=== PATIENT | male | born 1965 | race Caucasian/White ===

== ENCOUNTER 2020-05-21 09:41 | Inpatient (IN) | payer BC ==
[~2020-05-21] VITALS: Ht 188 cm; Wt 88.0 kg
--- NOTE | 2020-05-21 10:12 | Emergency Department Note ---
History of Present Illnes History of Present Illness History of Present Illness This is a 55 year old male hx of Crohn dz on Remicade sent over by Dr Anselmo Styles for 4 wks of f/c coughing, SOB. He has been tested negative for Covid 2 times, been taking Augmentin 1 course then Z pack once but he is not getting better. Arrival Mode: Car Card Brusher Required: No Onset (how long ago): week(s) Radiation: Reports back Severity: moderate Onset quality: gradual Duration (how long): week(s) Timing of current episode: intermittent Progression: worsening Chronicity: new Relieving factors: rest Exacerbating factors: movement Associated symptoms: Reports chest pain, Reports cough, Reports diaphoresis, Reports fever/chills, Reports loss of appetite, Reports malaise, Reports shortness of breath, Reports weakness Treatments prior to arrival: none Previous service: medications given, one or more referrals Past Medical/Family History Physician Review I have reviewed the patient's past medical and family history. Any updates have been documented here. Past Medical History Recent Fever: Yes Clinical Suspicion of Infectio: Yes New/Unexplained Change in Ment: No Other Medical History: Crohn Past Surgical History: None Social History Smoking Cessation: Never Smoker Counseling Performed: No Alcohol Use: Social Any Illegal Drug Use: No Family History Family history of heart diseas: No Other Any Pre-Existing Lines (PICC,: No Review of Systems Review of Systems Constitutional: Reports no symptoms EENTM: Reports no symptoms Cardiovascular: Reports chest pain Respiratory: Reports as per HPI, Reports chest congestion, Reports cough, Reports pain with cough, Reports dyspnea, Reports dyspnea on exertion Gastrointestinal: Reports no symptoms Genitourinary: Reports no symptoms Musculoskeletal: Reports no symptoms Integumentary: Reports no symptoms Neurological: Reports no symptoms Psychological: Reports no symptoms Endocrine: Reports no symptoms Hematological/Lymphatic: Reports no symptoms Physical Exam Related Data Allergies: Coded Allergies: No Known Allergies (Unverified , 05/21/20) Vital signs reviewed: Yes (HR 107, sat 99 % RA) Physical Exam CONSTITUTIONAL Constitutional: Present well-developed, Present well-nourished HENT HENT: Present normocephalic, Present atraumatic, Present oropharynx clear/moist, Present nose normal HENT L/R: Present left ext ear normal, Present right ext ear normal EYES Eyes: Reports PERRL, Reports conjunctivae normal NECK Neck: Present ROM normal PULMONARY Pulmonary: Present rales CARDIOVASCULAR Cardiovascular: Present tachycardia GASTROINTESTINAL Abdominal: Present soft, Present nontender, Present bowel sounds normal GENITOURINARY Genitourinary: Present exam deferred SKIN Skin: Present warm, Present dry MUSCULOSKELETAL Musculoskeletal: Present ROM normal NEUROLOGICAL Neurological: Present alert, Present oriented x 3, Present no gross motor or sensory deficits PSYCHOLOGICAL Psychological: Present mood/affect normal, Present judgement normal Results Laboratory Lab results reviewed: Yes Laboratory comments platelets are low Imaging Imaging results reviewed: Yes Imaging Comments CT scan no PE, pna right lower Procedures 12 Lead ECG Interpretation ECG Interpretation : ECG: ECG 1 Date: May 21, 2020 Time: 09:52 Prior ECG tracings: reviewed Rhythm: sinus tachycardia Rate: tachycardia QRS axis: normal Conduction: incomplete RBBB ST segments normal: Yes T waves normal: Yes Clinical Impression: abnormal ECG Assessment & Plan Medical Decision Making MDM PNA, COV, effusion, CHF Reassessment Reassessment time: 12:30 Reassessment doing better Assessment & Plan Final Impression: (1) Right lower lobe pneumonia (2) Thrombocytopenia (3) Tachycardia (4) Bronchospasm with bronchitis, acute Depart Disposition: ADMITTED Home Meds Reported Medications Celecoxib* (CELEBREX*) 100 Mg Capsule, 100 MG PO DAILY, #30 CAP 05/21/20 Losartan Potassium (LOSARTAN POTASSIUM) 100 Mg Tablet, 100 MG PO DAILY, TAB 05/21/20 Infliximab (REMICADE) 100 Mg/Vial Vial, every 8 weeks 05/21/20 Allopurinol (ALLOPURINOL) 100 Mg Tablet, 100 MG PO DAILY, #30 TAB 05/21/20 Discontinued Reported Medications Citalopram Hydrobromide (CELEXA) 20 Mg Tablet 05/21/20 Medications in the ED Rocephin IV, Dexamethasone IV Physician Attestation Provider Attestation case discussed with Dr Ernandez, MATHEW Ogden MD May 21, 2020 10:12
--- NOTE | 2020-05-21 10:35 | Diagnostic Imaging Report ---
EXAMINATION: CXR 2 VIEW - HOPD INDICATION: Chest pain, cough, fever COMPARISON: None FINDINGS: LINES/TUBES:EKG leads overlie the chest. LUNGS:The lungs are well-inflated. No focal consolidation or pulmonary edema. PLEURA:No pleural effusion or pneumothorax. MEDIASTINUM:The cardiomediastinal silhouette appears normal in size and shape. BONES/SOFT TISSUES:No acute osseous injury. ABDOMEN:No free air under the diaphragm. IMPRESSION: No focal pneumonia or pulmonary edema. Signed by: Marily Rubalcava MD on 05/21/2020 10:31 AM
[2020-05-21] MEDS ORDERED: CEFTRIAXONE SOD 1 GM VIAL IV ONE (10:45)
[2020-05-21] MEDS ORDERED: DEXAMETHASONE SOD PHOS 10 MG/1 ML VIAL IV ONE (10:45)
[2020-05-21] MEDS ORDERED: DEXAMETHASONE SOD PHOS INJ 4 MG/ML VIAL ONE (11:02)
[2020-05-21] MEDS ORDERED: CEFTRIAXONE SOD 1 GM/NS 50 ML 50 ML IV ONE (11:03)
[2020-05-21] MEDS ORDERED: ACETAMINOPHEN 325 MG TAB ONE (11:03)
[2020-05-21] MEDS ORDERED: SODIUM CHLORIDE 0.9% 1000ML 1,000 ML IV STA (11:04)
--- OUTSIDE RECORDS SUMMARY | 2020-05-21 11:08 | XMS REPORT | Continuity of Care Document ---
Author Author [facility] Organization [facility] Address [address] [place] [address] [place] [id number] Phone Unavailable Care Team Providers [employer] Name Role Phone Cassy ROJAS Attphys Unavailable Problems This patient has no known problems. Allergies, Adverse Reactions, Alerts This patient has no known allergies or adverse reactions. Medications This patient has no known medications. Procedures This patient has no known procedures. Results Test Description Test Time Test Comments Results Result Comments Source CXR 2 VIEW - HOPD 2020-05-21 10:31:00 [facility] : 1965 Sex: M [facility] [address] [place] [address] Patient Name: KIMMY HAYNES MR #: [id number] : 1965 Age/Sex: 55/M Req #: [id number] [facility] Physician: Ordered by: MATHEW ROJAS MD Report #: [id number] Location: [facility] Room/Bed: Procedure: [id number] HOPD/CXR 2 VIEW - HOPD Exam Date: 05/21/20 Exam Time: 1023 REPORT STATUS: Signed EXAMINATION: CXR 2 VIEW - HOPD INDICATION: Chest pain, cough, fever COMPARISON: None FINDINGS: LINES/TUBES:EKG leads overlie the chest. LUNGS:The lungs are well- inflated. No focal consolidation or pulmonary edema. PLEURA:No pleural effusion or pneumothorax. MEDIASTINUM:The cardiomediastinal silhouette appears normal in size and shape. BONES/SOFT TISSUES:No acute osseous injury. ABDOMEN:No free air under the diaphragm. IMPRESSION: No focal pneumonia or pulmonary edema. Signed by: Wilfredo Villanueva MD on 05/21/2020 10:31 AM Dictated By: WILFREDO VILLANUEVA MD 1031 Transcribed By: RITESH on 05/21/20 1031 COPY TO: MATEHW ROJAS MD
[2020-05-21] MEDS ORDERED: CEFTRIAXONE SOD 1 GRAM/0.9% SOD CHL 50ML BAG IV SCH (11:15)
[2020-05-21] MEDS: ALBUTEROL SULF 0.083% NEB SOLN 3 ML NEB NEB SCH ×2 (11:25→20:45)
[2020-05-21] MEDS: IPRATROPIUM BROMIDE 0.02% 2.5 ML NEB NEB SCH ×2 (11:25→20:45)
--- OUTSIDE RECORDS SUMMARY | 2020-05-21 11:25 | XMS REPORT | Continuity of Care Document ---
Author Author [facility] Organization [facility] Address [address] [place] [address] [place] [id number] Phone Unavailable Care Team Providers Care [employer] Name Role Phone Cassy ROJAS Attphys Unavailable Problems This patient has no known problems. Allergies, Adverse Reactions, Alerts This patient has no known allergies or adverse reactions. Medications This patient has no known medications. Procedures This patient has no known procedures. Results Test Description Test Time Test Comments Results Result Comments Source CXR 2 VIEW - HOPD 2020-05-21 10:31:00 [facility] : 1965 Sex: M [facility] [address] [place] [address] Patient Name: KIMMY HAYNES MR #: [id number] : 1965 Age/Sex: 55/M Req #: [id number] [facility] Physician: Ordered by: MATHEW ROJAS MD Report #: [id number] Location: [facility] Room/Bed: Procedure: [id number] HOPD/CXR 2 VIEW - HOPD Exam Date: [...] By: RITESH on 05/21/20 1031 COPY TO: MATHEW ROJAS MD
[2020-05-21] MEDS ORDERED: ACETAMINOPHEN 325 MG TAB PO NR (11:30)
[2020-05-21] MEDS ORDERED: ALBUTEROL SULF 0.083% NEB SOLN 3 ML NEB ONE (11:30)
[2020-05-21] MEDS ORDERED: SODIUM CHLORIDE 0.9% 1000ML 1,000 ML ONE (11:30)
[2020-05-21] MEDS ORDERED: IPRATROPIUM BROMIDE 0.02% 2.5 ML NEB ONE (11:30)
[2020-05-21] MEDS ORDERED: IOPAMIDOL 370 MG/ML 200 ML INFUS..BTL INJ ONE (11:32)
[2020-05-21] MEDS ORDERED: SODIUM CHLORIDE 0.9% 50ML 50 ML ONE (11:32)
--- NOTE | 2020-05-21 12:19 | Diagnostic Imaging Report ---
EXAM: CT Chest WITH contrast- Pulmonary Embolism Protocol INDICATION: Chest pain COMPARISON: None TECHNIQUE: Chest was scanned utilizing a multidetector helical scanner from the lung apex through the level of the diaphragm after administration of IV contrast. Thin section reconstructions were obtained with special concentration on the pulmonary arteries. Coronal and sagittal reformations were obtained. Pulmonary embolism protocol was performed. IV CONTRAST: 100 cc of Isovue 370 RADIATION DOSE: Total DLP: 521 mGy*cm Dose modulation, iterative reconstruction, and/or weight based adjustment of the mA/kV was utilized to reduce the radiation dose to as low as reasonably achievable. COMPLICATIONS: None FINDINGS: LINES/ TUBES: None. PULMONARY ARTERIES: No filling defect is identified within the pulmonary arteries to the segmental level. The subsegmental pulmonary arteries are not well opacified. Main pulmonary artery measures 2.9 cm in diameter. No right heart strain. LUNGS AND AIRWAYS: The central airways are patent. Patchy consolidation at the dependent right lower lobe. PLEURA: The pleural spaces are clear. HEART AND MEDIASTINUM: The thyroid gland is normal. No mediastinal, hilar or axillary lymphadenopathy. The heart is normal in size.. There is no pericardial effusion. No aortic aneurysm or dissection.. UPPER ABDOMEN: Splenomegaly to 16 cm. No acute findings in the upper abdomen. BONES: No acute osseous injury. No suspicious lytic or blastic lesions. SOFT TISSUES: Unremarkable. IMPRESSION: No pulmonary embolism. Patchy consolidation at the dependent right lower lobe may represent subsegmental atelectasis however superimposed atypical pneumonia could also have this appearance and should be excluded clinically. Signed by: Marily Rubalcava MD on 05/21/2020 12:16 PM
--- NOTE | 2020-05-21 13:11 | NUR ---
Contacted [facility] to transport pt to room 212
--- NOTE | 2020-05-21 13:22 | NUR ---
ETA for [facility] 30-45 minutes
--- NOTE | 2020-05-21 13:44 | NUR ---
Report to ZEN Lewis
[2020-05-21] MEDS ORDERED: REMICADE100 MG/VIA (14:28)
[2020-05-21] MEDS ORDERED: CELEXA20 MG (14:28)
[2020-05-21] MEDS ORDERED: ALLOPURINOL100 MG PO (14:28)
[2020-05-21] MEDS ORDERED: LOSARTAN POTAS100 MG PO (14:28)
[2020-05-21] MEDS ORDERED: CELEBREX100 MG PO (14:52)
[2020-05-21 15:07] VITALS: BP 133/72
[2020-05-21 16:00] VITALS: BP 135/92
[2020-05-21 16:22] VITALS: BP 133/72
--- NOTE | 2020-05-21 17:44 | NUR ---
ct abd and pelvis to be completed 05/22/20. patient already received IV contrast today. patient aware to not eat lunch tomorrow for scan at 12.
[2020-05-21] MEDS: PIPER-TAZ 3.375 GM 50 ML IV SCH (17:52)
--- NOTE | 2020-05-21 17:55 | NUR ---
consults to dr. cee & dr. diamond called to office.
[2020-05-21 20:00] VITALS: BP 131/83
[2020-05-21] MEDS ORDERED: ACETAMINOPHEN 325 MG TAB PO PRN (20:30)
[2020-05-21] MEDS ORDERED: ONDANSETRON HCL INJ 2MG/ML 2ML 2 MG/ML VIAL IV PRN (20:30)
[2020-05-21] MEDS: DOXYCYCLINE 100MG/NS 100ML 100 ML IV SCH (21:00)
--- NOTE | 2020-05-21 22:53 | History and Physical ---
CHIEF COMPLAINT: Fever, chills. HISTORY OF PRESENT ILLNESS: Mr. Rider is a 55-year-old male, who has a history of Crohn disease. He works in [employer]. He was at . office and was sent to the emergency room because of fever and chills. He reports that the symptoms have been going on for one month and he has seen his primary care physician, . She gave him antibiotics. However, he feels congested upper airway and congested sinuses including drainage. He has been tested COVID twice and has been negative and COVID was tested here in the emergency room, which was negative as well. He took a course of Augmentin and Z-Jose J once but not getting better. REVIEW OF SYSTEMS: GENERAL: No fever or chills. HEAD: Denies any head trauma. ENT: Denies any earache. CVS: Denies any chest pain. RESPIRATORY: No shortness of breath. GI: Denies any nausea or vomiting. The rest of the review of systems are negative except as in HPI. PAST MEDICAL HISTORY: Crohn disease. FAMILY AND SOCIAL HISTORY: He does not smoke. Does not drink. PHYSICAL EXAMINATION: VITAL SIGNS: Temperature 98.4, pulse of 116, blood pressure 135/92, respiratory rate of 18, and T-max of 101. HEENT: Head atraumatic, normocephalic. NECK: Supple. CHEST: Clear to auscultation bilaterally. No wheezing. Few crackles on the bases. HEART: S1, S2 audible. ABDOMEN: Soft. EXTREMITIES: No pedal edema. NEUROLOGIC: Awake and alert. LABORATORY DATA: No new labs here. CT chest is showing pneumonia. I reviewed the images. ASSESSMENT/PLAN: Mr. Rider is a 55-year-old male with fever. COVID has been negative twice. The patient's CT is showing evidence of right lower lobe pneumonia. I will start the patient on IV antibiotics. The patient is already on IV Zosyn. I will add doxycycline and also we will do CT abdomen and pelvis. Consult ID. Consult GI because the patient has history of Crohn disease. Pneumonia can be the source of fever, however, we will rule out other sources. We will do a CT abdomen and pelvis. Elena MD LUIS A Ernandez/JOSE /[id number]
[2020-05-22] VITALS (9 sets, daily range): BP systolic 113–151; BP diastolic 71–92
--- NOTE | 2020-05-22 00:35 | NUR ---
pt resting comfortably in bed no signs of distress no complaints at this time
[2020-05-22] MEDS: ALBUTEROL/IPRATROPIUM 3 ML NEB NEB SCH ×4 (03:35→19:15)
[2020-05-22] MEDS ORDERED: SODIUM CHLORIDE 0.9% 1000ML 1,000 ML ONE (04:09)
[2020-05-22] MEDS: PIPER-TAZ 3.375 GM 50 ML IV SCH ×5 (06:00→21:57)
[2020-05-22] MEDS: ALBUTEROL SULF 0.083% NEB SOLN 3 ML NEB NEB SCH (06:00)
[2020-05-22] MEDS: IPRATROPIUM BROMIDE 0.02% 2.5 ML NEB NEB SCH (06:00)
[2020-05-22 07:02] LABS: ANION GAP 13.6 mmol/L (8-16); BLOOD UREA NITROGEN 16 mg/dL (7-26); BUN/CREATININE RATIO 19 (6-25); CALCIUM 8.1 mg/dL (8.4-10.2); CARBON DIOXIDE 25 mmol/L (22-29); CHLORIDE 104 mmol/L (98-107); CREATININE, SERUM 0.84 mg/dL (0.72-1.25); EST GLOMERULAR FILTRATION RATE > 60 ML/MIN (60-); GLUCOSE 161 mg/dL (74-118); POTASSIUM 3.6 mmol/L (3.5-5.1); SODIUM 139 mmol/L (136-145)
[2020-05-22 07:16] LABS: BASOPHILS % 0.5 % (0.0-1.0); EOSINOPHILS % 0.2 % (0.0-6.0); HEMATOCRIT 39.4 % (38.2-49.6); HEMOGLOBIN 13.1 g/dL (14.0-18.0); LYMPHOCYTES # (AUTO) 2.6 (1.0-3.2); LYMPHOCYTES % 41.5 % (18.0-39.1); MEAN CORPUSCULAR HEMOGLOBIN 30.8 pg (28-32); MEAN CORPUSCULAR HGB CONC 33.2 g/dL (31-35); MEAN CORPUSCULAR VOLUME 92.5 fL (81-99); MONOCYTES # (AUTO) 0.7 (0.2-0.8); MONOCYTES % 11.1 % (4.4-11.3); NEUTROPHILS # (AUTO) 2.9 (2.1-6.9); NEUTROPHILS % 45.4 % (38.7-80.0); PLATELET COUNT 83 x10e3/uL (140-360); RED BLOOD COUNT 4.26 x10e6/uL (4.3-5.7); RED CELL DISTRIBUTION WIDTH 13.6 % (11.7-14.4)
[2020-05-22] MEDS: BUDESONIDE 0.25 MG/2 ML NEB NEB SCH ×2 (08:03→19:15)
[2020-05-22] MEDS: DOXYCYCLINE 100MG/NS 100ML 100 ML IV SCH ×2 (08:41→21:57)
[2020-05-22] MEDS: LOSARTAN POTASSIUM 100 MG TAB PO SCH (08:41)
--- NOTE | 2020-05-22 10:38 | NUR ---
DAY 1 OBS. DX: RLL PNA, BRONCHOSPASM W BRONCHITIS, TACHY SENT TO R1 FOR LOC DETERMINATION
[2020-05-22] MEDS ORDERED: IOPAMIDOL 370 MG/ML 200 ML INFUS..BTL INJ ONE (12:07)
[2020-05-22] MEDS ORDERED: SODIUM CHLORIDE 0.9% 50ML 50 ML ONE (12:07)
[2020-05-22 14:08] LABS: ALANINE AMINOTRANSFERASE 56 IU/L (0-55); ALBUMIN 2.6 g/dL (3.5-5.0); ALBUMIN/GLOBULIN RATIO 0.6 (0.8-2.0); ALKALINE PHOSPHATASE 150 IU/L (40-150); ANION GAP 11.8 mmol/L (8-16); BLOOD UREA NITROGEN 15 mg/dL (7-26); BUN/CREATININE RATIO 17 (6-25); CALCIUM 8.9 mg/dL (8.4-10.2); CARBON DIOXIDE 28 mmol/L (22-29); CHLORIDE 104 mmol/L (98-107); CREATININE, SERUM 0.89 mg/dL (0.72-1.25); EST GLOMERULAR FILTRATION RATE > 60 ML/MIN (60-); GLUCOSE 125 mg/dL (74-118); POTASSIUM 3.8 mmol/L (3.5-5.1); SODIUM 140 mmol/L (136-145)
--- NOTE | 2020-05-22 15:39 | Diagnostic Imaging Report ---
EXAM: CT Abdomen and Pelvis WITH intravenous contrast INDICATION: Fever COMPARISON: Chest CT of 05/21/2020 TECHNIQUE: Abdomen and pelvis were scanned utilizing a multidetector helical scanner from the lung base to the pubic symphysis after administration of IV contrast. Coronal and sagittal reformations were obtained. Routine protocol was performed. Scan was performed during portal venous phase. IV CONTRAST: 100mL of Isovue 370 ORAL CONTRAST: Water RADIATION DOSE: Total DLP: 463 mGy*cm Dose modulation, iterative reconstruction, and/or weight based adjustment of the mA/kV was utilized to reduce the radiation dose to as low as reasonably achievable. FINDINGS: LOWER THORAX: Please refer to report from the chest CT for intrathoracic findings HEPATOBILIARY: Diffuse hepatic steatosis. No focal liver lesion. No biliary ductal dilation. Calcified gallstone in the body and neck of the decompressed gallbladder. No gallbladder wall thickening or pericholecystic fluid. SPLEEN: Splenomegaly to 15 cm. PANCREAS: No focal masses or ductal dilatation. ADRENALS: No adrenal nodules. KIDNEYS/URETERS: No hydronephrosis, stones, or solid mass lesions. PELVIC ORGANS/BLADDER: Unremarkable. PERITONEUM / RETROPERITONEUM: No free air or fluid. LYMPH NODES: No lymphadenopathy. VESSELS: Unremarkable. GI TRACT: No abnormal bowel thickening. No bowel obstruction. Normal appendix. BONES AND SOFT TISSUES: No acute osseous injury. No suspicious lytic or blastic lesions. IMPRESSION: Cholelithiasis. Diffuse hepatic steatosis. Splenomegaly. Signed by: Marily Rubalcava MD on 05/22/2020 3:36 PM
--- NOTE | 2020-05-22 16:19 | NUR ---
Nutrition Screen Note RD Recommendation for Physician: -Continue regular diet -If PO intake is <50% of meals, offer Ensure Enlive Plan of Care: RD following, monitoring for tolerance and adequacy Nutrition reason for involvement: Nutrition Risk Trigger Primary Diagnose(s): bronchospasm with bronchitis, tachycardia, thrombocytopenia PMH: Crohn disease Ht: 74 in Wt:194 lb BMI: 24.9 kg/m2 IBW:[address] Assessment: (05/22/20) Chart reviewed. Labs and meds reviewed. Pt is a 55 year old male admitted with bronchospasm with bronchitis, tachycardia, and thrombocytopenia. Pt reports he is eating most of his meals at this time. 75% of breakfast recorded. Prior to admission, pt mentioned he was eating <50% of his meals for 2 weeks and used to weigh 213 lbs. Pt currently has a weight of 194 lbs in chart. If accurate, this would be a significant weight loss. No N/V/D/C or chewing/swallowing issues. Will continue to monitor. Current Diet: regular Malnutrition Evaluation (05/22/20) The patient does not meet criteria for a specified degree of malnutrition at this time. Will re-evaluate at follow-up as appropriate. Energy intake: Adequate PO intake reported at this time Weight loss: 9% weight loss in 2 weeks per pt report Fat loss: no loss identified per observation Muscle loss: no loss identified per observation Supporting Evidence: Fluid accumulation: no edema per MD note Functional Status: not assessed Diet Education Needs Assessment: Diet education not indicated. Nutrition Care Level: low Signed: Vidhya Mccabe, RD, LD
[2020-05-22] MEDS: ACETAMIN/BUTALBITAL/CAFFEINE TAB PO PRN (16:43)
--- NOTE | 2020-05-22 16:53 | Consultation ---
DATE OF CONSULTATION: 05/22/[address] Ernandez. HISTORY OF PRESENT ILLNESS: Joel Rider is a 55-year-old male, who has been referred to me for evaluation of thrombocytopenia. The patient had presented with fever. The patient has been COVID negative. SOCIAL HISTORY: Noncontributory. FAMILY HISTORY: Noncontributory. ALLERGIES: REPORTED NONE. MEDICATIONS: At this time: 1. Doxycycline. 2. Losartan. 3. Ondansetron. 4. Zosyn. 5. Tylenol. REVIEW OF SYSTEMS: HEENT: Normal. CARDIAC: Normal. RESPIRATORY: Normal, however, bronchopneumonia at this time. GI: Being treated for Crohn disease for many years with biologics. : Normal. MUSCULOSKELETAL: Normal. SKIN AND BREASTS: Normal. NEUROENDOCRINE: Normal. The patient claims that he had ultrasound of the abdomen. The patient has been reported to have fatty liver. PHYSICAL EXAMINATION: GENERAL: A moderately built male, has spider angioma over the chest. No palpable adenopathy. HEART: Within normal limits. LUNGS: Clear. The patient does have spider angioma over the chest. ABDOMEN: Soft. RECTAL: Deferred. CENTRAL NERVOUS SYSTEM: Essentially normal. EXTREMITIES: Essentially normal. LABORATORY DATA: Lab shows a hemoglobin of 13.1, hematocrit of 39.4, white count of 6330, and platelets of 83,000. Chemistry is not available at this time for review. Sodium 139, potassium 3.6, chloride 104, CO2 of 25, BUN 16, creatinine 0.8, glucose slightly high at 161, calcium low at 8.1. IMAGING DATA: Imaging consists of a CT scan of the chest, which shows patchy consolidation and dependent right lower lobe. The patient also has splenomegaly. IMPRESSION: 1. Thrombocytopenia. 2. Hypocalcemia. 3. Splenomegaly. 4. Consolidation right lower lobe. 5. History of Crohn disease. 6. History of hepatic steatosis. PLAN, COMMENTS AND SUGGESTIONS: Thrombocytopenia related to the hepatic steatosis and splenomegaly. The patient has low calcium, denotes that he may have low albumin, asked to have a CMP done to look at the level of the albumin. The patient eventually will develop cirrhosis of liver. However, he is being followed up by Dr. Anselmo Styles who will keep a close eye. The level of thrombocytopenia at this time is not critical. However, this will decrease as he gets more fibrosis than his liver. Continue aggressive antibiotics. I will confine myself to Hematology only. MD DENEEN Cornejo/JOSE /[id number] cc: MD Anselmo Aponte MD
--- NOTE | 2020-05-22 17:44 | Consultation ---
DATE OF CONSULTATION: REASON FOR CONSULTATION: Fever and chills. HISTORY OF PRESENT ILLNESS: Mr. Tereso Maldonado is a 55-year-old white male, who has history of Crohn disease for 30 years. He has been on Remicade for the last 15 years or so. He gets every 8 weeks recently. For the last 2 months at the week #7 before he get his dose, he started to have fever, chills, not feeling well. Because of COVID, he was tested twice and came back negative twice. He was [facility]. He was a little bit short of breath, so he was sent here to be admitted. The patient, who does have history of Crohn disease, otherwise denies any. PAST MEDICAL HISTORY: Crohn disease. PAST SURGICAL HISTORY: Denies. ALLERGIES: NKA. SOCIAL HISTORY: There is no smoking, drug abuse, or alcohol abuse. There is no animal contact. REVIEW OF SYSTEMS: At the present time, beside the fever and chills, he is feeling bad, otherwise unremarkable. LABORATORY DATA: Reviewed. His blood cultures are pending. His white count is 6.33, hemoglobin 13, hematocrit 39, and his platelet is 83. His COVID was negative. His CT of the chest showed patchy consolidation at the dependent right lower lobe. No pulmonary embolism. Chest x-ray, there is no focal pneumonia. PHYSICAL EXAMINATION: GENERAL: He is currently alert and oriented. VITAL SIGNS: Stable, currently afebrile. When he first came, it was 101.9. HEENT: He is not icteric. NECK: Supple. CHEST: Clear bilateral. HEART: S1 and S2. ABDOMEN: Soft. Bowel sounds present. EXTREMITIES: No edema. SKIN: No rash. IMPRESSION: Fever. The patient is immunocompromised. Source is unclear, atypical pneumonia is a possibility. We will check for chlamydia, mycoplasma, and Legionella. Would continue Zosyn. Add azithromycin. Await blood cultures. Await urine cultures. Obtain CT abdomen and pelvis. Thrombocytopenia. Other possibility is due to remdesivir, but usually more diffuse disease. Discussed with the patient. Discussed with Internal Medicine. We will follow. MD LUZ ELENA Hill/JOSE /[id number]
[2020-05-22] MEDS: ACETAMINOPHEN/CODEINE 300MG - 30MG TAB PO PRN (20:18)
--- NOTE | 2020-05-22 21:53 | Diagnostic Imaging Report ---
Exams: Head CT and Maxillofacial CT without IV contrast History: Fever,? Sinusitis Comparison studies: None. Technique: Axial images were obtained to the vertex and maxillofacial region. Coronal and sagittal images reconstructed from the axial data. Dose modulation, iterative reconstruction, and/or weight based adjustment of the mA/kV was utilized to reduce the radiation dose to as low as reasonably achievable. Intravenous contrast: None Findings: Scalp: No abnormalities. Bones: No fractures, blastic or lytic lesions. Brain sulci: Appropriate for age. Ventricles: Normal in size and configuration. No hydrocephalus. Parenchyma: Normal no densities. No masses, hemorrhage, acute or chronic vascular insults. Sellar/suprasellar region: No abnormalities Craniocervical junction: Patent foramen magnum. No Chiari one malformation. Maxillofacial CT: Soft tissues: No abnormalities. Bones: No fractures or bony abnormalities. Orbits: Bilateral intraocular lens replacements. No other abnormalities. Paranasal sinuses: Polypoid mucosal thickening within both maxillary sinuses with 4.0 cm left maxillary sinus polyp or retention cyst. Remaining sinuses are clear. Bilateral ostiomeatal units, frontoethmoidal recesses and sphenoethmoidal recesses are patent. Middle ear cavities and mastoids: Clear. Dentition: No periapical lucencies. Incidental findings: Torus mandibularis. Atherosclerotic calcifications in the carotid siphons. IMPRESSION: Head CT: No acute abnormalities. Maxillofacial CT: 1. Polypoid mucosal thickening in the bilateral maxillary sinuses with 4.0 cm left maxillary sinus retention cyst or polyp. 2. Remaining sinuses are clear. No sinus fluid level. Signed by: Dr. Subhash Jacome M.D. on 05/22/2020 9:50 PM
--- NOTE | 2020-05-22 23:04 | Progress Note ---
DATE: Progress Note SUBJECTIVE: The patient is improving. No distress. Breathing well. The patient is still complaining of severe facial pain and headache and congestion. Reports that he has sinus problems. He is denying any chest pain, nausea, vomiting. His breathing is better. The patient is afebrile since he has been in the hospital. PHYSICAL EXAMINATION: VITAL SIGNS: Temperature 98.3, pulse of 100, blood pressure 151/92, T-max of 101 that was yesterday. LABORATORY DATA: White count of 6000, hemoglobin 13.3. Chemistry within normal limits. Abdominal CT shows diffuse hepatic steatosis, splenomegaly and cholelithiasis. ASSESSMENT/PLAN: Mr. Rider is a 55-year-old male. He is complaining of sinus congestion and severe headache that has been going on for last few days and now is getting worse. CURRENT PROBLEM: 1. Fever, etiology is not very clear. Possibility of pneumonia is there in the right lower lobe. Continue the patient on IV antibiotics. Case discussed with Dr. Kingsley. CT abdomen is showing cholelithiasis. I will do ultrasound of the gallbladder. 2. Severe headache, congestion, and sinus problem. I will do a CT face and CT head without contrast and consult ENT for further evaluation. Continue nebulizer treatment. 3. Thrombocytopenia is stable. Appreciate Dr. Ridley's input, reviewed the note. MD LUIS A Aponte/JOSE /[id number]
[2020-05-23] VITALS (8 sets, daily range): BP systolic 118–135; BP diastolic 75–94
[2020-05-23] MEDS: ALBUTEROL/IPRATROPIUM 3 ML NEB NEB SCH ×4 (00:30→19:30)
[2020-05-23] MEDS: ACETAMINOPHEN/CODEINE 300MG - 30MG TAB PO PRN ×3 (03:05→16:40)
[2020-05-23] MEDS: ACETAMIN/BUTALBITAL/CAFFEINE TAB PO PRN ×3 (05:20→19:41)
[2020-05-23] MEDS: PIPER-TAZ 3.375 GM 50 ML IV SCH ×3 (05:20→16:53)
[2020-05-23 05:45] LABS: BASOPHILS # (AUTO) 0.1 (0.0-0.1); BASOPHILS % 0.7 % (0.0-1.0); EOSINOPHILS % 0.6 % (0.0-6.0); HEMATOCRIT 38.5 % (38.2-49.6); HEMOGLOBIN 12.8 g/dL (14.0-18.0); LYMPHOCYTES # (AUTO) 3.4 (1.0-3.2); LYMPHOCYTES % 49.3 % (18.0-39.1); MEAN CORPUSCULAR HGB CONC 33.2 g/dL (31-35); MEAN CORPUSCULAR VOLUME 93.2 fL (81-99); MONOCYTES # (AUTO) 0.8 (0.2-0.8); MONOCYTES % 11.2 % (4.4-11.3); NEUTROPHILS # (AUTO) 2.6 (2.1-6.9); NEUTROPHILS % 36.9 % (38.7-80.0); PLATELET COUNT 73 x10e3/uL (140-360); RED BLOOD COUNT 4.13 x10e6/uL (4.3-5.7); RED CELL DISTRIBUTION WIDTH 13.6 % (11.7-14.4)
[2020-05-23 06:08] LABS: ANION GAP 12.6 mmol/L (8-16); BLOOD UREA NITROGEN 12 mg/dL (7-26); BUN/CREATININE RATIO 12 (6-25); CALCIUM 8.2 mg/dL (8.4-10.2); CARBON DIOXIDE 27 mmol/L (22-29); CHLORIDE 102 mmol/L (98-107); CREATININE, SERUM 0.98 mg/dL (0.72-1.25); EST GLOMERULAR FILTRATION RATE > 60 ML/MIN (60-); GLUCOSE 101 mg/dL (74-118); POTASSIUM 4.6 mmol/L (3.5-5.1); SODIUM 137 mmol/L (136-145)
[2020-05-23] MEDS ORDERED: SODIUM CHLORIDE 0.9% 250ML 250 ML ONE (07:36)
[2020-05-23] MEDS: LOSARTAN POTASSIUM 100 MG TAB PO SCH (08:40)
[2020-05-23] MEDS: DOXYCYCLINE 100MG/NS 100ML 100 ML IV SCH ×2 (08:40→19:41)
--- NOTE | 2020-05-23 11:17 | NUR ---
INFECTIOUS DISEASE PROGRESS NOTE REASON FOR CONSULTATION: Fever and chills. HISTORY OF PRESENT ILLNESS: Mr. Tereso Maldonado is a 55-year-old white male, who has history of Crohn disease for 30 years. He has been on Remicade for the last 15 years or so. He gets every 8 weeks recently. For the last 2 months at the week #7 before he get his dose, he started to have fever, chills, not feeling well. Because of COVID, he was tested twice and came back negative twice. [facility] He was a little bit short of breath, so he was sent here to be admitted. The patient, who does have history of Crohn disease, otherwise denies any. REVIEW OF SYSTEMS: +fatigue LABORATORY DATA: per chart PHYSICAL EXAMINATION: GENERAL: He is currently alert and oriented. VITAL SIGNS: Stable, currently afebrile. When he first came, it was 101.9. HEENT: He is not icteric. NECK: Supple. CHEST: Clear bilateral. HEART: S1 and S2. ABDOMEN: Soft. Bowel sounds present. EXTREMITIES: No edema. SKIN: No rash. LABS: reviewed Radiology: reviewed IMPRESSION: Fever immunocompromised atypical pneumonia is a possibility. Hepatic steatosis splenomegaly severe sinusitis versus sinus cyst PLAN We will check for chlamydia, mycoplasma, and Legionella. Desmond Inman. Await blood cultures. Await urine cultures. Shania Kingsley M.D.
--- NOTE | 2020-05-23 11:27 | Diagnostic Imaging Report ---
EXAM: Gallbladder Ultrasound INDICATION: Gallstones COMPARISON: CT scan 05/22/2020 TECHNIQUE: Transverse and longitudinal images of the gallbladder/right upper quadrant were obtained. FINDINGS: Liver: The liver is enlarged measuring 18.2 cm in length. Increased hepatic echogenicity could be due to fatty infiltration. No focal liver mass. Gallbladder: Stones/Sludge: None seen. Wall: 0.2 cm Appearance: No wall thickening, pericholecystic fluid or hydrops. The patient ate 2 hours ago per history. Patient not NPO. Sonographic Shook's Sign: Negative Bile Ducts: Intrahepatic Ducts: No dilatation Extrahepatic Ducts: Common bile duct measures 0.2 cm, no dilatation. The pancreas is grossly unremarkable. The main portal vein is normal in appearance measuring 1.1 cm with normal blood flow. The right kidney is normal in appearance measuring 11.8 cm. The visualized abdominal aorta and inferior vena cava are unremarkable. Free Fluid: No ascites or pleural effusion IMPRESSION: Hepatomegaly with increased hepatic echogenicity could be due to fatty infiltration. Per history the patient ate 2 hours ago. No gallbladder wall thickening or pericholecystic fluid is seen. The previously reported gallstone is not seen on today's exam. Signed by: Dr. Babatunde Boss M.D. on 05/23/2020 11:24 AM
--- NOTE | 2020-05-23 11:32 | Progress Note ---
DATE: SUBJECTIVE: The patient is breathing well. No distress. Still complaining of severe face pain and headache. CT of the face was done and it is showing severe polypoid mucosal thickening in the bilateral maxillary sinuses and retention cyst. He is denying any complaints of chest pain, nausea, or vomiting. PHYSICAL EXAMINATION: VITAL SIGNS: Temperature 98.4, pulse of 92, and blood pressure 129/84. T-max of 100.3. CHEST: Clear. GENERAL: Awake and alert. ABDOMEN: Soft. EXTREMITIES: No pedal edema. LABORATORY DATA: Reviewed. ASSESSMENT/PLAN: Mr. Rider is a 55-year-old male, who has severe face pain and headache with the low-grade fever, possibility of severe sinusitis versus sinus cyst. ENT has been consulted. We will follow the recommendations. Thrombocytopenia possibly due to the liver disease, currently stable. Currently stable platelets count. Hematology is following the patient. Continue nebulizer treatment and IV antibiotics per ID recommendations. Oxygen as needed to keep the O2 saturation more than or equal to 92%. MD LUIS A Aponte/JOSE /[id number]
[2020-05-23] MEDS: BUDESONIDE 0.25 MG/2 ML NEB NEB SCH ×2 (14:59→19:30)
--- NOTE | 2020-05-23 16:54 | Progress Note ---
DATE: 05/23/2020 SUBJECTIVE: Joel Rider is a 55-year-old white male referred to me for evaluation of thrombocytopenia. The patient's platelets today at 73,000, hemoglobin of 12.6, white count 6980 with normal indices. Immunology ANCA titer is missing as suspected. 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 Calcium of course is low at 8.[address]. [address] scan of the abdomen and pelvis had shown diffuse hepatic steatosis as well as splenomegaly. So far, there is no suggestion of cirrhosis of liver. However, he is reaching that phase as clinically he has hypoalbuminemia, hyperglobulinemia, spider angioma and thrombocytopenia. I will confine myself to Hematology only. Thank you very much for allowing me to participate in the management of this patient. MD DENEEN Cornejo/MODL /[id number] cc: MD Kassy Luna MD
--- NOTE | 2020-05-23 19:13 | NUR ---
Paged to remind of consult
--- NOTE | 2020-05-23 19:19 | NUR ---
Report given to oncoming nurse of patient's status. Resting in bed. No s/s of acute distress noted. Side rails upx2, call light within reach.
[2020-05-24] VITALS (8 sets, daily range): BP systolic 131–150; BP diastolic 62–91
[2020-05-24] MEDS: PIPER-TAZ 3.375 GM 50 ML IV SCH ×5 (00:10→23:43)
[2020-05-24] MEDS: ACETAMINOPHEN/CODEINE 300MG - 30MG TAB PO PRN ×2 (00:43→08:15)
[2020-05-24] MEDS: ALBUTEROL/IPRATROPIUM 3 ML NEB NEB SCH ×4 (00:55→19:20)
[2020-05-24] MEDS: BUDESONIDE 0.25 MG/2 ML NEB NEB SCH ×2 (07:21→19:20)
[2020-05-24] MEDS: LOSARTAN POTASSIUM 100 MG TAB PO SCH (08:17)
[2020-05-24] MEDS: DOXYCYCLINE 100MG/NS 100ML 100 ML IV SCH ×2 (08:17→20:23)
--- NOTE | 2020-05-24 10:00 | NUR ---
Per patient "I called my GI doctor, to see if he can come see me or if he wants me to follow up outpatient. Based on that answer, will see if he comes see me. "
--- NOTE | 2020-05-24 10:32 | NUR ---
Spoke with via phone. Aware of new consult
[2020-05-24] MEDS: ACETAMIN/BUTALBITAL/CAFFEINE TAB PO PRN (11:20)
--- NOTE | 2020-05-24 12:00 | NUR ---
O2 removed SPO2 98% on room air. Upon ambulations SPO2 96% on room air.
--- NOTE | 2020-05-24 12:29 | Progress Note ---
DATE: SUBJECTIVE: The patient is breathing well, off oxygen, doing well. PHYSICAL EXAMINATION: VITAL SIGNS: Temperature 98.2 and pulse of 96. CHEST: Clear to auscultation bilaterally. No wheezing. HEART: S1 and S2 audible. NEUROLOGIC: Awake and alert. ABDOMEN: Soft. LABORATORY DATA: Reviewed. The patient remained afebrile since has been in the hospital. ASSESSMENT/PLAN: Mr. Rider is a 55-year-old male, likely has severe sinusitis or sinus and bilateral maxillary sinuses and mucosal thickening. Awaiting ENT consultation. Once the patient is cleared by Dr. Kaiser, he can be discharged home. Oxygen has been discontinued. Antibiotics per ID recommendations. MD LUIS A Aponte/JOSE /[id number]
[2020-05-24] MEDS ORDERED: ONDANSETRON HCL 4 MG ORAL DISINTEGRATING TAB PO PRN (13:00)
--- NOTE | 2020-05-24 13:00 | NUR ---
has not returned my call yet
--- NOTE | 2020-05-24 18:00 | NUR ---
Patient states, " has not seen me. I want to go home." Called to remind of consult. Per "Ill be there in 20 minutes" Notified patient of doctor's message.
--- NOTE | 2020-05-24 18:31 | Progress Note ---
DATE: SUBJECTIVE: Joel Rider is a 55-year-old male, who was referred to me for evaluation of thrombocytopenia. The initial CBC on 06/11 showed a hemoglobin of 13.1, white count of 6330, and platelets of 83,000. Hemoglobin is stable at 12.8 on 05/23, white count of 6980, and platelets of 73,000. As dictated before, the patient's CAT scan of the abdomen has shown a fatty liver and splenomegaly. As discussed, the patient does have spider angioma and this is highly suggestive of early cirrhosis with portal hypertension, hypersplenism and thrombocytopenia. I have discussed at length with the patient his diagnosis to which he claimed that he knows everything about his disease process. It is contemplated by Dr. Ernandez, the attending physician that Dr. Jayna Jasso will see him for severe sinusitis. The patient at the present time is on doxycycline, Zosyn. I will confine myself to Hematology only. Thank you very much for allowing me to participate in management of this patient. MD DENEEN Cornejo/JOSE /[id number] cc: Dr. Ernandez
--- NOTE | 2020-05-24 19:25 | NUR ---
Per patient cleared to discharge and follow up outpatient. Paged to notify of clearance. Awaiting for call back. Report given to oncoming nurse of patient's status.
[2020-05-24] MEDS ORDERED: AUGMENTIN 875-1 EACH PO (19:39)
--- NOTE | 2020-05-24 21:17 | NUR ---
INFECTIOUS DISEASE PROGRESS NOTE REASON FOR CONSULTATION: Fever and chills. HISTORY OF PRESENT ILLNESS: Mr. Tereso Maldonado is a 55-year-old white male, who has history of Crohn disease for 30 years. He has been on Remicade for the last 15 years or so. He gets every 8 weeks recently. For the last 2 months at the week #7 before he get his dose, he started to have fever, chills, not feeling well. Because of COVID, he was tested twice and came back negative twice. [facility]. He was a little bit short of breath, so he was sent here to be admitted. The patient, who does have history of Crohn disease, otherwise denies any. REVIEW OF SYSTEMS: +fatigue LABORATORY DATA: per chart PHYSICAL EXAMINATION: GENERAL: He is currently alert and oriented. VITAL SIGNS: Stable, currently afebrile. When he first came, it was 101.9. HEENT: He is not icteric. NECK: Supple. CHEST: Clear bilateral. HEART: S1 and S2. ABDOMEN: Soft. Bowel sounds present. EXTREMITIES: No edema. SKIN: No rash. LABS: reviewed Radiology: reviewed IMPRESSION: Fever immunocompromised atypical pneumonia is a possibility. Hepatic steatosis splenomegaly severe sinusitis versus sinus cyst PLAN We will check for chlamydia, mycoplasma, and Legionella. Desmond Inman. Await blood cultures. Await urine cultures it is very likely his infusion medication for chron's disease is causing the complications Shania Kingsley M.D.
[2020-05-25] VITALS: BP 113/67
[2020-05-25] MEDS: ALBUTEROL/IPRATROPIUM 3 ML NEB NEB SCH ×2 (01:00→06:35)
--- NOTE | 2020-05-25 01:32 | Consultation ---
DATE OF CONSULTATION: 05/24/2020 Hospital Consultation HISTORY OF PRESENT ILLNESS: I was kindly asked to see this 55-year-old man for evaluation of chronic rhinosinusitis. The patient has a many year history of nasal congestion and excessive nasal drainage. He has been treated with fluticasone and uses [id number] antihistamines on an as-needed basis. Most recently, he has been using Zyrtec. He believes his Zyrtec is no longer effective. In the last 12 months prior to this admission, he has required one course of antibiotic for treatment of his rhinosinusitis. He has seasonal variation with his symptoms and his symptoms are typically worse in the fall. He relates his symptoms to a ragweed allergy, although he has not been allergy tested. Over the last six weeks to two months, he has developed increased nasal congestion, anterior facial pain and pressure significantly worse on the left side. He was admitted for pulmonary pathology and as part of his workup, had a CT scan of his paranasal sinuses. CT scan showed polypoid mucosal thickening bilaterally in the maxillary sinuses with a 4.0 cm left maxillary sinus retention cyst or polyp. The remaining paranasal sinuses were clear. His history of present illness, past medical history, and past surgical history were reviewed in detail in the chart PHYSICAL EXAMINATION: There was a moderate amount of cerumen bilaterally, which was impacted in the medial aspect of the canal. The tympanic membrane cannot be visualized. A moderate nasal septal deviation to the left with 50 to 75% occlusion of the nasal airway. There was minimal to moderate edema of the nasal mucosa with thick mucus and blood in the anterior nasal cavity consistent with his recent use of nasal prong oxygen. Oral cavity and pharyngeal examination were normal. There was no palpable cervical adenopathy on fiberoptic diagnostic rhinoscopy. The ostiomeatal complex was unremarkable bilaterally. Specifically, there was no evidence of active infection and no polyps or neoplastic changes noted. ASSESSMENT: 1. Left maxillary sinus retention cyst. 2. Chronic allergic rhinosinusitis. 3. Nasal septal deviation. PLAN: Continuation of current therapy with outpatient evaluation and treatment. Thank you very much. MD TABITHA Pandya/JOSE /[id number]
[2020-05-25 04:00] VITALS: BP 117/77
[2020-05-25] MEDS: PIPER-TAZ 3.375 GM 50 ML IV SCH (05:45)
[2020-05-25] MEDS: ACETAMINOPHEN/CODEINE 300MG - 30MG TAB PO PRN (05:56)
[2020-05-25] MEDS: BUDESONIDE 0.25 MG/2 ML NEB NEB SCH (06:35)
[2020-05-25 08:00] VITALS: BP 131/87
--- NOTE | 2020-05-25 08:00 | NUR ---
Discharge instructions and prescription were given to the patient, he verbalized understanding. IV to the left FA was removed with tip intact.
--- NOTE | 2020-05-25 08:20 | NUR ---
INFECTIOUS DISEASE PROGRESS NOTE REASON FOR CONSULTATION: Fever and chills. HISTORY OF PRESENT ILLNESS: Mr. Tereso Maldonado is a 55-year-old white male, who has history of Crohn disease for 30 years. He has been on Remicade for the last 15 years or so. He gets every 8 weeks recently. For the last 2 months at the week #7 before he get his dose, he started to have fever, chills, not feeling well. Because of COVID, he was tested twice and came back negative twice. [facility]. He was a little bit short of breath, so he was sent here to be admitted. The patient, who does have history of Crohn disease, otherwise denies any. REVIEW OF SYSTEMS: +fatigue LABORATORY DATA: per chart PHYSICAL EXAMINATION: GENERAL: He is currently alert and oriented. VITAL SIGNS: Stable, currently afebrile. When he first came, it was 101.9. HEENT: He is not icteric. NECK: Supple. CHEST: Clear bilateral. HEART: S1 and S2. ABDOMEN: Soft. Bowel sounds present. EXTREMITIES: No edema. SKIN: No rash. LABS: reviewed Radiology: reviewed IMPRESSION: Fever immunocompromised atypical pneumonia is a possibility. Hepatic steatosis splenomegaly severe sinusitis versus sinus cyst -ENT will follow outpatient PLAN workup pending overall improvement Desmond Inman. it is very likely his infusion medication for chron's disease is causing the complications Shania Kingsley M.D.
[2020-05-25 08:26] VITALS: BP 131/87
--- NOTE | 2020-05-26 02:25 | Discharge Summary ---
FINAL DIAGNOSES: 1. Left maxillary sinus retention cyst, chronic allergic rhinosinusitis, nasal septal deviation. 2. Fever, etiology was not very clear. 3. History of Crohn disease. ADMISSION HISTORY AND HOSPITAL COURSE: Mr. Rider is a 55-year-old male, who was admitted from the ER. He was sent from Dr. Styles's office. Because of fever the patient has been tested twice for COVID, which was negative. CT chest, abdomen, pelvis did not show any evidence of abnormality. CT chest showed small area of atelectasis, patchy consolidation, possibility of pneumonia was there. CT showed maxillary sinus retention cyst. The patient improved, became afebrile. Infectious Disease and other services cleared the patient to be discharged. The patient had thrombocytopenia, that is why Hematology was consulted. Platelets remained stable. He will be discharged home to follow up with his primary care physician and follow up with other consultants. MD LUIS A Aponte/JOSE /[id number]
== END 2020-05-25 08:32 | disposition home or self-care (01) | DRG 154 ==
LOC: FSED 09:55 → ERHOLD 11:09 → MED/SURG2 14:32 → OBSVTOIN 05-22 15:14
PROVIDERS: ADMIT Internal Medicine; ATTEND Internal Medicine
DX: J34.1 Cyst and mucocele of nose and nasal sinus (principal); J18.9 Pneumonia, unspecified organism; K50.90 Crohn's disease, unspecified, without complications; D84.821 Immunodeficiency due to drugs; D69.6 Thrombocytopenia, unspecified; E83.51 Hypocalcemia; R16.1 Splenomegaly, not elsewhere classified; Z20.828 Contact with and (suspected) exposure to other viral communicable diseases; J20.9 Acute bronchitis, unspecified; K76.0 Fatty (change of) liver, not elsewhere classified; K80.20 Calculus of gallbladder without cholecystitis without obstruction; J30.9 Allergic rhinitis, unspecified; J34.2 Deviated nasal septum; Z79.899 Other long term (current) drug therapy
CPT/HCPCS: 36415; 70450; 70486; 71046; 71260; 74177; 76705; 80048; 80053; 82140; 82553; 84484; 85025; 85379; 86021; 86039; 86644; 86645; 86738; 86777; 86778; 87040; 87086; 87449; 93005; 94640; 96360; 96374; 99284; G0378; J0696; J1100; J2543; J7030; J7050; Q9967; U0002